=== PATIENT | male | born 1985 | race Two or more races ===

== ENCOUNTER 2020-04-18 05:54 | Emergency (ER) | payer OTHER ==
[~2020-04-18] VITALS: Ht 170.2 cm; Wt 90.7 kg
[2020-04-18 06:06] VITALS: BP 130/85; Ht 170.2 cm; Wt 90.7 kg
== END 2020-04-18 06:29 | disposition home or self-care (01) ==
LOC: ED 05:54
DX: J34.0 Abscess, furuncle and carbuncle of nose (principal)

== ENCOUNTER 2020-04-25 20:07 | Emergency (ER) | payer OTHER ==
[~2020-04-25] VITALS: Ht 172.7 cm; Wt 106.6 kg
[2020-04-25 20:40] VITALS: BP 103/73; Ht 172.7 cm; Wt 106.6 kg
== END 2020-04-25 23:47 | disposition home or self-care (01) ==
LOC: ED 20:07
DX: J34.0 Abscess, furuncle and carbuncle of nose (principal)
CPT/HCPCS: J2001

== ENCOUNTER 2020-06-01 14:11 | Emergency (ER) | payer OTHER ==
[~2020-06-01] VITALS: Ht 172.7 cm; Wt 107.0 kg
[2020-06-01 14:22] VITALS: Ht 172.7 cm; Wt 107.0 kg
[2020-06-01 16:03] VITALS: BP 124/89
== END 2020-06-01 16:03 | disposition home or self-care (01) ==
LOC: ED 14:11
DX: S41.011A Laceration without foreign body of right shoulder, initial encounter (principal); X58.XXXA Exposure to other specified factors, initial encounter; Y93.23 Activity, snow (alpine) (downhill) skiing, snowboarding, sledding, tobogganing and snow tubing; Y92.89 Other specified places as the place of occurrence of the external cause; Y99.8 Other external cause status

== ENCOUNTER 2020-06-30 23:27 | Emergency (ER) | payer OTHER ==
[~2020-06-30] VITALS: Ht 172.7 cm; Wt 106.6 kg
[2020-06-30 23:39] VITALS: BP 113/66; Ht 172.7 cm; Wt 106.6 kg
[2020-07-01] MEDS ORDERED: ZIPSOR25 MG PO (00:52)
[2020-07-01] MEDS ORDERED: KEF500 PO (00:52)
[2020-07-01] MEDS ORDERED: VOLTAREN100 GM TOP (00:52)
== END 2020-07-01 01:34 | disposition home or self-care (01) ==
LOC: ED 23:27
DX: S46.911A Strain of unspecified muscle, fascia and tendon at shoulder and upper arm level, right arm, initial encounter (principal); X58.XXXA Exposure to other specified factors, initial encounter; Y93.89 Activity, other specified; Y92.89 Other specified places as the place of occurrence of the external cause; Y99.8 Other external cause status
CPT/HCPCS: J1885